=== PATIENT | male | born 1970 | race Caucasian/White ===

== ENCOUNTER → 2017-02-25 | Day surgery (SDC) | payer MEDICARE ==
[~2017-02-25] MED LIST: AMITRYPTYLINE; ASPIRINEC PO; BUSPAR; CELEBREX PO; CELEXA PO; DESYREL100 MG PO; DIAZEPAM PO; DUONEB 2.5-0.5 M3 ML; ECOTRIN81 M1 PO; EFFEXOR XR; FLEXERIL PO; LEVAQUIN750 M1 PO; LISINOPRIL10 MG PO; LORTAB 10/500 T1 TAB PO; LORTAB 2.5/5001 TAB; METOPROLOL TAR25 MG; MOBIC PO; NAPROXEN PO; NEURONTIN PO; OXYCODON HCL-1 UDTA1 PO; OXYCODON HCL-AP1 TA2 PO; PRAVASTATIN SOD20 MG PO; PRAVASTATIN SOD40 MG PO; PREDNISONE PO; PREDNISONE10 M1; SIMVASTATIN20 MG PO; SIMVASTATIN40 MG PO; SYMBICORT INH; TOPAMAX PO; TOPAMAX25 MG PO; ULTRAM PO; VOLTAREN50 MG PO; ZANAFLEX4 M1 PO
--- NOTE | ~2017-02-25 | OR ---
Unit #: [id number] #: [id number] Patient: TC TOM [id number] [address] [place], [place] [address] [id number] O MR#: [id number] NAME: TC TOM ROOM: Date of Procedure: 02/25/2017 Admission Date: 02/25/2017 Surgeon: Didier Villa M.D. : 1970 Attending Physician: Didier Villa M.D. Primary Care Physician: Anais Coffey M.D. OPERATIVE REPORT PREOPERATIVE DIAGNOSES Back pain, radiculopathy, postlumbar fusion, degenerative disk disease. POSTOPERATIVE DIAGNOSES Back pain, radiculopathy, postlumbar fusion, degenerative disk disease. PROCEDURE PERFORMED Lumbar epidural steroid injection with intravenous sedation and fluoroscopic guidance for needle localization. INDICATIONS FOR PROCEDURE The patient is a 46-year-old male with previously mentioned diagnosis. Re-flare of his pain was not settle with conservative measures. Plan is to give the patient a trial of epidural steroids. Risks and benefits of all which have been reviewed. DESCRIPTION OF PROCEDURE The patient was placed in a seated position. Standard monitors were applied. 2 mg of Versed were given for sedation and anxiolysis, which were adequate. Vital signs remained stable. Sterile prep and drape then of lumbar area was performed. The skin then at the L2-L3 level was localized with 1% lidocaine. An 18-gauge H[employer] needle was then advanced via loss of resistance technique and fluoroscopic guidance in toward the epidural space. After confirming proper positioning with fluoroscopy and radiographic contrast, 80 mg of Depo-Medrol and 6 mL of 0.5% lidocaine were deposited. The patient tolerated the procedure otherwise well and was discharged to the recovery room in stable condition. Dictated by... Lianna KirkP/niyahl TD: 02/25/2017 22:38 JOB #: [id number] Unit #: [id number] #: [id number] Patient: TC TOM OPERATIVE REPORT Page 1 of 1 X Didier Villa MD X PROCEDURE OPERATIVE NOTE
== END | disposition home or self-care (01) ==
LOC: CCSC 10:22
DX: M51.16 Intervertebral disc disorders with radiculopathy, lumbar region (principal); Z98.1 Arthrodesis status
CPT/HCPCS: J1040; J2250

== ENCOUNTER → 2017-03-11 | Day surgery (SDC) | payer MEDICARE ==
--- NOTE | ~2017-03-11 | OR ---
Unit #: [id number] #: [id number] Patient: TC TOM [id number] [address] [place], [place] [address] [id number] O MR#: [id number] NAME: TC TOM ROOM: Date of Procedure: 03/11/2017 Admission Date: 03/11/2017 Surgeon: Didier Villa M.D. : 1970 Attending Physician: Didier Villa M.D. Primary Care Physician: Anais Coffey M.D. OPERATIVE REPORT PREOPERATIVE DIAGNOSES Back pain, radiculopathy, postlumbar fusion, degenerative disk disease. POSTOPERATIVE DIAGNOSES Back pain, radiculopathy, postlumbar fusion, degenerative disk disease. PROCEDURE PERFORMED Lumbar epidural steroid injection with intravenous sedation and fluoroscopic guidance for needle localization. INDICATIONS FOR PROCEDURE The patient is a 46-year-old male with worsening back and lower extremity pains. He has a fusion at L3-S1. He had flare in his radiculitis that would not settle with conservative measures. So, initial epidural steroid injection was done 2 weeks ago, which helped all components of his pain. Some of the back pain is returned, but overall he is better. Based on good partial response, his pathology, symptomatology, and other options, we are going to proceed with a second injection today. DESCRIPTION OF PROCEDURE The patient was placed in a seated position. Standard monitors were applied. 2 mg of Versed were given for sedation and anxiolysis, which were adequate. Vital signs remained stable. Sterile prep and drape then of lumbar area was performed. The skin then at the L2-L3 level was localized with 1% lidocaine. An 18-gauge [employer] needle was then advanced via loss of resistance technique and fluoroscopic guidance in toward the epidural space. After confirming proper positioning with fluoroscopy and radiographic contrast, 80 mg of Depo-Medrol and 4 mL of 0.125% bupivacaine were deposited. The patient tolerated the procedure otherwise well and was discharged to the recovery room in stable condition. Dictated by... Lianna Kirk/terrell TD: 03/12/2017 01:00 JOB #: [id number] Unit #: [id number] #: [id number] Patient: TC TOM OPERATIVE REPORT Page 1 of 1 X Didier Villa MD X PROCEDURE OPERATIVE NOTE
== END | disposition home or self-care (01) ==
LOC: CCSC 10:21
DX: M51.16 Intervertebral disc disorders with radiculopathy, lumbar region (principal); I25.2 Old myocardial infarction; Z79.82 Long term (current) use of aspirin; Z79.891 Long term (current) use of opiate analgesic; Z79.1 Long term (current) use of non-steroidal anti-inflammatories (NSAID); Z79.899 Other long term (current) drug therapy; Z98.1 Arthrodesis status
CPT/HCPCS: J1040; J2250

== ENCOUNTER → 2017-03-25 | Day surgery (SDC) | payer MEDICARE ==
--- NOTE | ~2017-03-25 | OR ---
Unit #: [id number] #: [id number] Patient: TC TOM [id number] [address] [place], [place] [address] [id number] O MR#: [id number] NAME: TC TOM. ROOM: Date of Procedure: 03/25/2017 Admission Date: 03/25/2017 Surgeon: Dideir Villa M.D. : 1970 Attending Physician: Didier Villa M.D. Primary Care Physician: Anais Coffey M.D. OPERATIVE REPORT PREOPERATIVE DIAGNOSES Back pain, radiculopathy, degenerative disk disease, postlumbar fusion. POSTOPERATIVE DIAGNOSES Back pain, radiculopathy, degenerative disk disease, postlumbar fusion. PROCEDURE PERFORMED Lumbar epidural steroid injection with intravenous sedation and fluoroscopic guidance for needle localization. INDICATIONS FOR PROCEDURE The patient is a 46-year-old male, who had fusion from L2 through L5. He had a flare in his back and lower extremity pain felt to be radiculitis, so plan is to give a trial of epidural steroids. Two were done over the last month given an additive definite improvement of 50% to 60% of his symptom complex. Based on his good additive response, his pathology, and symptomatology, plan is to repeat an epidural steroid injection today. DESCRIPTION OF PROCEDURE The patient was placed in a seated position. Standard monitors were applied. 2 mg of Versed were given for sedation and anxiolysis, which were adequate. Vital signs remained stable. Sterile prep and drape then of the lumbar area was performed. The skin then at the L2-L3 level was localized with 1% lidocaine. An 18-gauge [employer] needle was then advanced via loss of resistance technique and fluoroscopic guidance in toward the epidural space. After confirming proper positioning with fluoroscopy and radiographic contrast, 80 mg of Depo-Medrol and 6 mL of 0.125% bupivacaine were deposited. The patient tolerated the procedure otherwise well and was discharged to recovery room in stable condition. Dictated by... Didier Villa M.D. LHP/modl TD: 03/26/2017 01:44 JOB #: [id number] Unit #: [id number] #: [id number] Patient: TC TOM OPERATIVE REPORT Page 1 of 1 X Didier Villa MD X PROCEDURE OPERATIVE NOTE
== END | disposition home or self-care (01) ==
LOC: CCSC 10:07
DX: M51.16 Intervertebral disc disorders with radiculopathy, lumbar region (principal); Z98.1 Arthrodesis status
CPT/HCPCS: J1040; J2250